=== PATIENT | female | born 1955 | race Caucasian/White ===

== ENCOUNTER 2025-03-26 16:41 | Inpatient (IN) | payer MEDICARE, BC ==
[~2025-03-26] VITALS: Ht 172.7 cm; Wt 112.0 kg
--- NOTE | 2025-03-26 17:05 | ELECTROCARDIOGRAPH REPORT ---
[facility] Test Date: 2025-03-26 Test Time: 17:03:07 Pat Name: HANDY MILLS Department: [facility] Patient ID: [facility]-[id number] Room: [place] [id number] Gender: F Appliance Sales Associate: : 1955 Requested By: FARIDEH RUDD Order Number: [id number] Reading MD: Dr. Osei Vo Measurements Intervals [place] Rate: 73 P: 54 DC: 150 QRS: 54 QRSD: 90 T: 45 QT: 379 QTc: 418 Interpretive Statements Sinus rhythm Electronically Signed On 03-27-2025 21:13:[address] Osei Vo Please click the below link to view image of tracing.
--- NOTE | 2025-03-26 17:24 | RADIOLOGY REPORT ---
CHEST RADIOGRAPH INDICATION: CP TECHNIQUE: Single frontal view of the chest was obtained COMPARISON: None FINDINGS: Lines and Tubes: None Lungs: No focal consolidation. Pleura: No effusion. No pneumothorax. Cardiomediastinal contours: Unremarkable Bones: No acute osseous abnormality. IMPRESSION: No acute cardiopulmonary disease.
[2025-03-26 17:42] LABS: MEAN PLATELET VOLUME 7.0 FL (7.4-10.4); RED CELL DISTRIBUTION WIDTH 14.5 % (11.5-14.5)
[2025-03-26 18:01] LABS: CREATININE 0.79 MG/DL (0.40-0.90); PRO BRAIN NATRIURETIC PEPTIDE 112 PG/ML (0-125); TOTAL CARBON DIOXIDE 30.1 MMOL/L (24-32); eCRCL 66 ML/MIN; eGFR 72 ML/MIN
--- NOTE | 2025-03-26 18:29 | Physician Documentation ---
History of Present Illness ~ Chief Complaint: Chest Pain Stated Complaint: MUTIPLE ISSUES Time Seen by MD: 18:16 OK to notify your PCP?: Yes Source: patient Mode of Arrival: POV, Ambulatory Exam Limitations: no limitations HPI 69 year old female patient with history of endometrial cancer presents to the ED with complaints of dizziness/lightheadedness/tightness in chest onset today. She is dealing with pain that radiates down bilateral shoulders. She feels generally unsteady. Symptoms started around noon today. She had a stress test about a year and a half ago for pre-surgical clearance which was unremarkable. Patient denies any other associated symptoms. Patient denies any other alleviat ing or exacerbating factors at this time. Medication Reconciliation Allergies: Coded Allergies: No Known Allergies (Unverified , 03/26/25) Miscellaneous Medications Home Med List (No Home Medications), (Reported) Past Medical History Other Past Medical History: Endometrial cancer Past Surgical History: noncontributory Smoking Status: Never smoker Drug Use: marijuana Lives In: Home Review of Systems All Other Systems at this time: Reviewed and Negative ROS As stated above in the HPI, otherwise all systems are reviewed and negative. Physical Exam Vital Signs: RN Vital Signs have been reviewed: Yes, Temperature: 98.3, Source: Oral, Heart Rate: 65, Respiratory Rate: 16, BP: 139/78, Pulse Oximetry: 98, Weight: 112.300 Oxygen Flow Rate: 0 Pulse Oximetry Reflects: adequate oxygenation Physical Exam General: Patient is awake, alert, oriented x4 in no acute distress and well appearing.~ Head: Normocephalic and atraumatic. Eyes: Conjunctival normal. EOMI. PERRL. ENT: Mucous membranes moist. Neck: Supple, trachea is midline. Chest: Clear to auscultation bilaterally without rales, rhonchi, or wheezes. There is no accessory muscle use or retractions. Cardiac: RRR without murmurs, gallops, or rubs. Abd: Soft, nondistended, nontender, with normoactive bowel sounds. No guarding, rebound, or rigidity. Extremities: Normal strength. Normal range of motion. No deformities or edema. Back: No midline spinal or CVA tenderness. Skin: Warm and dry with no significant rash appreciated. Neuro: Cranial nerves II-XII grossly intact. No focal neuro deficits. Patient ambulating without difficulty. Progress Progress Note 1900: Paging hospitalist. 1920: Resident hospitalist agrees to evaluate patient for admission. Results/Orders Results/Orders Orders - ZAKI REILLY MD Page Hospitalist (03/26/25 19:01) Fill Out Med Reconciliation (03/26/25 19:01) Completed Orders - ZAKI REILLY MD D-Dimer (03/26/25 18:41) Pt Inr (03/26/25 17:06) PTT (03/26/25 17:06) Vital Signs 03/26/25 03/26/25 03/26/25 03/26/25 16:50 17:38 17:59 18:38 Temp 97.5 98.3 Pulse 83 65 64 Resp 16 14 16 16 B/P (MAP) 152/81 139/78 (98) 129/73 (91) Pulse Ox 97 98 96 O2 Flow Rate 0 0 03/26/25 19:20 Pulse 62 Resp 15 B/P (MAP) 155/75 (101) Pulse Ox 100 O2 Flow Rate 0 Laboratory Tests Test 03/26/25 17:06 03/26/25 19:18 White Blood Count 3.9 L Red Blood Count 4.59 Hemoglobin 13.7 Hematocrit 41.6 Mean Corpuscular Volume 90.5 Mean Corpuscular Hemoglobin 29.7 Mean Corpuscular Hemoglobin Concent 32.9 L Red Cell Distribution Width 14.5 Platelet Count 170 Mean Platelet Volume 7.0 L Neutrophils (%) (Auto) 59.5 Lymphocytes (%) (Auto) 24.7 Monocytes (%) (Auto) 11.8 Eosinophils (%) (Auto) 3.2 Basophils (%) (Auto) 0.8 Neutrophils # (Auto) 2.3 Lymphocytes # (Auto) 1.0 L Monocytes # (Auto) 0.5 Eosinophils # (Auto) 0.1 Basophils # (Auto) 0.0 CBC Comment Prothrombin Time 9.9 INR International Normalized Ratio 1.0 Activated Partial Thromboplast Time 28 D-Dimer 0.60 H D-Dimer Comment Coagulation Comments Sodium Level 142 Potassium Level 4.0 Chloride Level 106 Carbon Dioxide Level 30.1 Anion Gap 6 L Blood Urea Nitrogen 22 H Creatinine 0.79 Estimated GFR/1.73 m2 72 BUN/Creatinine Ratio 27.8 H Glucose Level 107 H Calcium Level 9.1 Magnesium Level 2.0 Troponin I High Sensitivity 5 7 Pro-B-Type Natriuretic Peptide 112 Albumin 3.5 Triglycerides Level 125 Cholesterol Level 224 H LDL Cholesterol 122 H HDL Cholesterol 63 H Cholesterol/HDL Ratio 3.6 Thyroid Stimulating Hormone (TSH) 1.42 Chemistry Comments Troponin I High Sens Percent Delta 40 Troponin I Hi Sens Absolute Change 2 EKG/XRAY/CT/US/VASC/MRI EKG : Intepreting Monitor?: No Additional Comment EKG interpreted by myself: 1703: Normal sinus rhythm rate of 73, normal axis, no ST changes. Chest X-Ray : Interpreted By: radiologist Views: 1 VIEW Additional Comments CHEST RADIOGRAPH INDICATION: CP TECHNIQUE: Single frontal view of the chest was obtained COMPARISON: None FINDINGS: Lines and Tubes: None Lungs: No focal consolidation. Pleura: No effusion. No pneumothorax. Cardiomediastinal contours: Unremarkable Bones: No acute osseous abnormality. IMPRESSION: No acute cardiopulmonary disease. Electronically Signed by:LADAN CAMACHO DO Date & Time: 03/26/25 172 Dictated by: LADAN CAMACHO DO Dictation date and time: 03/26/25 1710 Primary Care Provider: NO PRIMARY CARE PROVIDER cc: FARIDEH RUDD MD ~ Medical Decision Making Additional information obtaine: N/A Findings Patient presents to the emergency room with chest pain that has per HPI. Differentials include but are not limited to ACS, pulmonary embolism, p neumothorax, pneumonia, viral syndrome therefore emergent labs and imaging indicated. Age adjusted D-dimer reassuring. Troponin reassuring. The patient does have elevated heart score we will admit for further investigation. Heart Score: 4 Differential Dx:Considerations: Include: angina, aortic dissection, chest wall pain, cholelithiasis, CHF, costochondritis, esophageal reflux/spasm, gastritis, herpes zoster, myocardial infarction, pericarditis, pleuritis, pancreatitis, pneumonia, pneumothorax, pulmonary embolus, other Departure Time of Disposition: 19:00 Impression: Primary Impression: Chest pain Qualified Codes: R07.9 - Chest pain, unspecified Condition: Fair Referrals: NO PRIMARY CARE PROVIDER (PCP) Signature Scribe Signature: Scribed for Zaki Reilly MD by Rajeev Avila . 03/26/25 19:01 Attestation: The note accurately reflects work and decisions made by me.Zaki Reilly MD 03/27/25 02:21 ZAKI REILLY MD Mar 26, 2025 18:29 RAJEEV MARIE Mar 26, 2025 18:52
[2025-03-26] MEDS ORDERED: mag hydrox/Alum hydrox/simeth 30ml oral suspension PO PRN (19:35)
[2025-03-26] MEDS ORDERED: magnesium sulf-water 4G/100mL 100 ML IV PRN (19:35)
[2025-03-26] MEDS ORDERED: ondansetron/PF 4mg/2ml inj IV PRN (19:35)
[2025-03-26] MEDS ORDERED: potassium Cl 40MEQ/1/2NS 520ml 520 ML IV PRN (19:35)
[2025-03-26] MEDS ORDERED: magnesium hydroxide 30ml (MOM) UD suspension PO PRN (19:35)
[2025-03-26] MEDS ORDERED: magnesium Cl slow-release 64mg tablet PO PRN (19:35)
[2025-03-26] MEDS ORDERED: potassium Cl 20 mEq SR tablet PO PRN ×2 (19:35)
[2025-03-26] MEDS ORDERED: magnesium sulf-water 2g/50mL 50 ML IV PRN (19:35)
[2025-03-26] MEDS: K and/or MAG REPLACEMENT MC SCH (20:00)
[2025-03-26] MEDS: docusate sod 100mg capsule PO SCH (20:00)
[2025-03-26 20:13] LABS: APTT 28 SECONDS (22-32); INR 1.0 INR
[2025-03-26 21:07] LABS: CHOL/HDL RATIO 3.6 (0.00-4.99); LDL CHOLESTEROL 122 MG/DL (50-100)
--- NOTE | 2025-03-26 21:18 | HISTORY AND PHYSICAL-Residence ---
History & Physical Providers to CC Resident Creating Document: ADRIAN MCFARLANE, RES ~ History of Present Illness Reason for Admit\Complaint: Chest Pain, orthostatic hypotension History of Present Illness 69-year-old female with no significant past medical history presented to the Emergency Department with dull chest tightness that began three days ago. The pain is constant, rated 2/10 in intensity, occurs at rest, and has no identifiable aggravating or relieving factors. It radiates to the neck and is associated with palpitations, nausea, vomiting, very mild shortness of breath, bilateral shoulder pain, and upper extremity muscle discomfort. She denies any similar episodes in the past and has no history of hypertension, myocardial infarction, or hyperlipidemia. The patient follows with Dr. Sanchez as an outpatient for surgical clearance. Additionally, she reports episodes of vertigo and lightheadedness when standing suddenly from a sitting position and notes a recent decrease in speech intensity. She denies focal neurological deficits, blurry vision, facial droop, loss of balance, or ataxia. Allergies: Coded Allergies: No Known Allergies (Unverified , 03/26/25) Past Medical History Past Medical History Arthritis Endometrial cancer Migraine Past Surgical History Surgical History Comment Bilateral hip surgery Gastric sleeve -2017 Endometrial cancer underwent robotic hysterectomy in 2023 and had last dose of chemotherapy and radiotherapy in December 2023 Past Social History Social History Comment PCP-[facility] Oncology-[facility] follows every 3 months [place]- Patient lives in home alone Patient drinks alcohol occasionally and smokes occasionally She smokes cigarettes and marijuana occasionally Able to ambulate without any assistance Drug Use: Marijuana Lives In: Home ROS All Other Systems: Reviewed and Negative ROS Review of system is negative except that mentioned in HPI Exam Vitals: Vital Signs Date Time Temp Pulse Resp B/P (MAP) Pulse Ox O2 Delivery O2 Flow Rate FiO2 03/26/25 20:16 67 15 133/82 (99) 96 0 03/26/25 17:38 98.3 General: Obese body habitus, Awake , alert, and oriented x4 HEENT: Atraumatic, normocephalic, EOMI, anicteric sclera ; pink conjunctiva, mild dry oral mucosa Neck: Trachea midline. Supple, full range of motion, no JVD Cardiac: Regular rhythm, regular rate with no murmurs all over the precordium. Respiratory: Equal breath sounds bilaterally, no tachypnea, no wheezing ,rub or rales, Chest wall is symmetric and without deformity. Gastrointestinal: Abdomen symmetric, non-distended, soft, non-tender, normal bowel sounds x4 quadrant, normoactive, no hepatosplenomegaly Neurological: Mental status exam: alert and consciousness, orientation, memory, speech - Cranial nerve test: Cranial nerves 2-12 intact - Motor system: Normal Nutrition, normal tone, Power 5/5, no involuntary movements - Sensory system: Intact - Reflex testing: Biceps, triceps and knee reflexes 2+ - Cerebellar: Normal Skin: Warm and dry Extremities : Mild less than +1 edema seen in bilateral lower extremity, peripheral pulses felt, No deformities Psychiatric:Appropriate mood and affect Diagnostic Data Last Recorded Lab Results: 03/27/25 0606 03/27/25 0646 Diagnostic Data: Laboratory Tests Test 03/26/25 17:06 Prothrombin Time 9.9 SECONDS (9.0-12.0) INR International Normalized Ratio 1.0 INR Activated Partial Thromboplast Time 28 SECONDS (22-32) D-Dimer 0.60 MG/L FEU (0-0.50) H D-Dimer Comment Coagulation Comments Advance Care Planning Advanced Care plannin - 30 Minutes Additional Plan 69 years old female with no significant past medical history is currently evaluated for chest pain Chest pain-ACS can not rule out Heart score-4 Wells Score-0 and Age Adjusted D-dimer is Normal as 68 years old can have Normal D-dimer upto 0.70 Patient presented with central chest pain which is 2/10 intensity radiating to the neck Troponin-negative, EKG-normal sinus rhythm, pro BNP normal Chest x-ray-rules out cardiopulmonary abnormality LDL-122 Started atorvastatin 40 mg, aspirin 81 mg, metoprolol 12.5 mg p.o., sublingual nitroglycerin p.r.n., TSH, U tox Patient will be monitored in telemetry, Follow up with Echo Patient will be NPO from midnight and Lexiscan tomorrow- Orthostatic hypotension Likley due to dehydration Patient mentioned she feels dizzy when stands up suddenly from sitting position Ordered orthostatic vitals, Started IV NS 75 cc per Hr - we will reaccess the volume status in 6 hrs Vertigo Central vs peripheral Patient mentioned having the sensation of room spinning whenever she stands up, per patient she has decreased in intensity of speech but for me it looks normal hence central causes can not be ruled out Follow up with CT head without contrast Chronic muscle and joint pain Pain control with morphine Obesity Patient has BMI of 37.6 and she underwent gastric sleeve surgery the past Follow up with PCP and recommended exercise and heart healthy diet Follow up with lipid panel Advance care: I spent a total of 16 minutes reviewing various resuscitative measures/ACP with patient. The patient decided to be full code Code Status: Full DVT prophylaxis: Heparin subQ Analgesia/Sedation: Morphine Line/tube: Peripheral Nutrition: Heart healthy and NPO from midnight PT: Order Prognosis: Guarded Disposition: Patient will be monitored in PCU with telemetry, NPO from midnight and Lexiscan in a.m. Adrian Mcfarlane PGY1-Internal Medicine Resident Addendum I personally reviewed the chart, labs and imaging and reviewed the patient with the team. I agree with the assessment and plan as documented by the resident. Patient was seen through remote audio-visual assessment through HIPAA compliance setup. Date of Service: Mar 26, 2025 Billing Provider: MICKEY MCELROY MD, SATISH, RES Mar 26, 2025 21:18 MICKEY MCELROY MD Mar 27, 2025 16:15
[2025-03-26] MEDS ORDERED: aminophylline 250mg/10ml inj. IV PRN (21:20)
[2025-03-26] MEDS ORDERED: metoprolol tartrate 1mg/ml inj IV PRN (21:20)
[2025-03-26] MEDS: metoprolol succinate 25mg (24-HOUR) SR. Tablet PO SCH (22:00)
[2025-03-26] MEDS: pantoprazole 40mg Tablet.DR PO ONE (22:01)
[2025-03-26] MEDS ORDERED: NO HOME MEDS (22:38)
--- NOTE | 2025-03-26 22:44 | RADIOLOGY REPORT ---
EXAM: CT CT HEAD INDICATION: Vertigo with speech problem suspecting central cause TECHNIQUE: CT of the head without intravenous contrast. Radiation Dose Information: CT Dose: CTDI volume is 60.20 mGy. Dose-length product is 1165.3 mGy*cm The dose indicators for CT are the volume Computed Tomography (CT) Dose Index (CTDIvol) and the Dose Length Product (DLP), and are measured in units of mGy and mGy-cm, respectively. These indicators are not patient dose, but values generated from the CT scanner acquisition factors. The report includes radiation exposure data for exposures received during this examination. COMPARISON: None FINDINGS: Motion artifact degrades fine detail. No acute territorial infarct, intracranial hemorrhage, or mass effect. There are global involutional changes with compensatory prominence of the ventricles and sulci. Patchy periventricular and subcortical white matter hypoattenuation is nonspecific but may be related to small vessel ischemic disease. The orbits are normal. The paranasal sinuses and mastoid air cells are clear. The osseous structures are unremarkable. IMPRESSION: 1. No acute territorial infarct, intracranial hemorrhage, or mass effect. 2. Age-related involutional changes. Chronic microvascular changes. 3. If clinical symptoms persist, MRI may be beneficial in further evaluation.
[2025-03-26 22:57] VITALS: BP 140/63; PULSE 72; RESP 19; TEMP 97.6; O2SAT 95
[2025-03-26] MEDS: normal saline 1000ml 1,000 ML IV SCH (23:26)
[2025-03-27] VITALS (17 sets, daily range): BP systolic 106–144; BP diastolic 45–76; PULSE 55–89; RESP 12–19; TEMP 97–98; O2SAT 91–98
[2025-03-27 06:30] LABS: LEUKOCYTE ESTERASE ,URINE SMALL (Neg); NITRITES, URINE NEGATIVE (Neg); OCCULT BLOOD,URINE TRACE-INTACT (Neg)
[2025-03-27 06:33] LABS: URINE AMPHETAMINE SCREEN NEGATIVE (Neg); URINE BARBITUATE SCREEN NEGATIVE (Neg); URINE BENZODIAZEPINES SCREEN NEGATIVE (Neg); URINE CANNABINOID SCREEN NEGATIVE (Neg); URINE COCAINE SCREEN NEGATIVE (Neg); URINE METHADONE SCREEN NEGATIVE (Neg); URINE OPIATE SCREEN NEGATIVE (Neg); URINE PHENCYCLIDINE SCREEN NEGATIVE (Neg)
[2025-03-27 06:42] LABS: UA COLLECTION TYPE NON-SPECIFIED
[2025-03-27 06:44] LABS: MUCUS STRANDS NONE SEEN /LPF (Neg); SQUAMOUS EPITHELIAL CELL,UR MODERATE /LPF (FEW); WBC CLUMPS,URINE FEW /HPF (NEGATIVE)
[2025-03-27 07:05] LABS: MEAN PLATELET VOLUME 6.9 FL (7.4-10.4); RED CELL DISTRIBUTION WIDTH 13.9 % (11.5-14.5)
[2025-03-27 07:30] LABS: CREATININE 0.67 MG/DL (0.40-0.90); TOTAL CARBON DIOXIDE 27.8 MMOL/L (24-32); eCRCL 78 ML/MIN; eGFR 87 ML/MIN
[2025-03-27] MEDS: heparin, porcine 5000 units/ml vial SQ SCH (07:46)
[2025-03-27 08:27] LABS: EOSINOPHILS % (MANUAL) 8.0 % (0-6); LYMPHOCYTES % (MANUAL) 25.0 % (21-51); MONOCYTES % (MANUAL) 17.0 % (2-12); NEUTROPHILS % (MANUAL) 50.0 % (42-75); PLATELET ESTIMATE NORMAL
[2025-03-27] MEDS: CefTRIAXone/D5W-Rocephin 1gm 50 ML IV ONE (09:37)
[2025-03-27] MEDS: PERFLUTREN PROTEIN-A MICROSPHR (Optison) 0.22 MG/ML 3ML VIAL IV ONE (10:00)
[2025-03-27] MEDS: regadenoson 0.4mg/5ml syringe IV PRN (10:30)
--- NOTE | 2025-03-27 11:55 | RADIOLOGY REPORT ---
PROCEDURE: PA NM ARTURO SCAN Exam Date: 03/27/2025 10:03 AM Reason for study/Clinical History: angina Comparison Study: None Myocardial Perfusion Study with SPECT TECHNIQUE: The patient received an intravenous injection of 8.8 mCi of technetium-99m sestamibi while at rest. After a short delay, SPECT tomographic images of the heart were obtained. The patient then went to the stress lab where they received an intravenous Lexiscan utilizing standard protocol. 35.3 mCi of technetium-99m sestabmibi was injected intravenously immediately after the start of the infusion. Gated SPECT tomographic images of the heart were acquired and processed. FINDINGS: Rotating planar images show no significant attenuation artifact. The left ventricular size is within normal limits. Stress tomographic images demonstrate normal perfusion. Resting tomographic images demonstrate a similar pattern. Gated portion of the study shows normal wall motion and myocardial thickening. The left ventricular ejection fraction is 60%. (normal greater than 50%) IMPRESSION: Normal left ventricular size, wall motion, and function, without evidence of infarction or of myocardium at ischemic risk.The left ventricular ejection fraction is 60%.
--- NOTE | 2025-03-27 13:16 | CARDIOLOGY REPORT ---
APPROVED REPORT EXAM: Comprehensive 2D, Doppler, and color-flow Echocardiogram. Patient Location: 3025B Blood Pressure: 126/76 mmHg Heart Rate: 65 bpm Rhythm: NSR Indications CAD Drafter Castings is BV. Laura MD No previous echo 2D Dimensions LA Diam 4.1 cm IVSd 1.0 (0.7-1.1cm) LVDd 4.5 cm PWd 1.0 (0.7-1.1cm) IVSs 1.5 (0.8-1.2cm) LVDs 3.2 (2.5-4.0cm) Aortic Root(2D) 3.1 cm PWs 1.5 (0.8-1.2cm) LVOT Diameter 2.00 (1.8-2.4cm) LVEF(%) 54.3 (>50%) Ao Asc Diam. 3.61 cm IVC 14.71 mm FS (%) 28.0 % SV 50.3 ml CO 3.3 L/min M-Mode Dimensions MV EPSS 0.5 (<0.5cm) Aortic Valve AoV Peak Kelechi. 138.4 cm/s AoV VTI 33.2 cm AO Peak GR. 7.7 mmHg AO Mean GR. 4 mmHg LVOT VTI 22.45 cm LVOT Peak Kelechi. 89.8 cm/s SIRI(VTI)/BSA 2.12 cm2/m2 SIRI (VTI) 2.12 cm2 AV DI 0.68 % Mitral Valve MV E Velocity 65.8 cm/s MV Peak Gr. 2 mmHg MV DECEL TIME 248 ms MV A Velocity 95.9 cm/s MV PHT 64 ms E/A Ratio 0.7 MVA (PHT) 3.44 cm2 MV VMax 76.1 cm/s TDI Medial E' P. V 12.36 cm/s E/Medial E' 5.3 Tricuspid Valve TR P. Velocity 256 cm/s RAP ESTIMATE 10 mmHg TR Peak Gr. 26 mmHg RVSP 36 mmHg Pulmonary Vein S1 Velocity 50.4 cm/s D2 Velocity 30.1 cm/s PVa Velocity 27.0 cm/s PVa Duration 96 msec LEFT VENTRICLE Normal LV size and wall thickness. Overall systolic function is normal. Overall LVEF is 55%. RIGHT VENTRICLE RV appears mildly dilated with normal contractility. RVSP is estimated at 36 mmHG. ATRIA Left atrium is mildly dilated. Small left to right patent foramen ovale noted by spectral and color flow Doppler. AORTIC VALVE Trileaflet AV appears sclerotic without stenosis. Trace insufficiency by color and spectral flow Doppler. MITRAL VALVE Mild MV annular calcification without stenosis. Trace regurgitation by color and spectral flow Doppler. TRICUSPID VALVE TV appears structurally normal with trace regurgitation by color and spectral flow Doppler. PULMONIC VALVE Normal PV without stenosis, physiologic insufficiency by color and spectral flow Doppler. GREAT VESSELS The aortic root is normal in size. The ascending aorta is measured at 3.6 cm. The IVC is normal in size and collapses >50% with inspiration. PERICARDIUM There is no pericardial effusion. Other Information Study Quality: Adequate Conclusion Overall LVEF is 55%. Normal LV size and wall thickness. Overall systolic function is normal. RV appears mildly dilated with normal contractility. RVSP is estimated at 36 mmHG. Small left to right patent foramen ovale noted by spectral and color flow Doppler. Trileaflet AV appears sclerotic without stenosis. Trace insufficiency by color and spectral flow Doppler. Mild MV annular calcification without stenosis. Trace regurgitation by color and spectral flow Doppler. TV appears structurally normal with trace regurgitation by color and spectral flow Doppler. There is no pericardial effusion.
--- NOTE | 2025-03-27 18:52 | PROGRESS NOTE ---
Daily Progress Note Providers to CC ~ Antibiotic Timeout Antibiotic Ordered?: No Subjective The patient continues to experience chest pressure however serial troponins were negative in his Lexiscan stress test was unremarkable- the patient is states that she has dizziness which is different than her prior vertigo episodes head CT scan was unremarkable as well as echocardiogram I have ordered a CTA of the head and neck as well as waiting for physical therapy evaluation Objective Vital Signs Date Time Temp Pulse Resp B/P (MAP) Pulse Ox O2 Delivery O2 Flow Rate FiO2 03/27/25 15:00 97.0 58 18 106/45 (65) 98 Room Air 03/26/25 20:16 0 Result Diagram: 03/27/25 0606 03/27/25 0646 Gen. No acute distress alert and oriented 4, obese Lungs clear to ascultation bilaterally, no wheezes rales or rhonchi appreciated Heart normal sinus rhythm no murmurs rubs or clicks noted Abdomen soft nontender bowel sounds are normoactive Lower extremities no clubbing cyanosis, nor edema appreciated bilaterally Coagulation Studies Laboratory Tests Test 03/26/25 17:06 Prothrombin Time 9.9 SECONDS (9.0-12.0) INR International Normalized Ratio 1.0 INR Activated Partial Thromboplast Time 28 SECONDS (22-32) D-Dimer 0.60 MG/L FEU (0-0.50) H D-Dimer Comment Coagulation Comments Problem\Assessment\Plan # Chest pain- acute coronary syndrome/NSTEMI evaluated for and ruled out Lexiscan stress test was negative for ischemia or reversible ischemia Serial troponins are negative # dizziness when standing # episode different than prior vertigo episodes Head CT scan was negative for CVA CTA is ordered of the head and neck Orthostatic vital signs were negative for orthostatic hypotension # obesity Weight loss is strongly advised by admitting doctor # DVT prophylaxis SQ heparin Disposition: Awaiting physical therapy evaluation Date of Service: Mar 27, 2025 Billing Provider: ERIK NUÑEZ DO Common Visit Codes: 03185-[id number] INP/OBS CARE(HIGH) ERIK NUÑEZ DO Mar 27, 2025 18:52
--- NOTE | 2025-03-27 22:49 | RADIOLOGY REPORT ---
INDICATION: Significant dizziness COMPARISON: CT CT HEAD on DOS: 03/26/25 TECHNIQUE: CTA imaging of the head and neck was performed following the uneventful administration of intravenous contrast. Sagittal and coronal reformatted images were obtained from the source data. All CT scans at this medical facility are performed using dose modulation techniques as appropriate to a performed exam including the following: Automated exposure control was utilized; adjustment of the MA and/or KV according to patient size; and use of iterative reconstruction technique. 3D MIP post-processing of the source data set was performed and reviewed by the radiologist. Radiation Dose Information: CT Dose: CTDI volume is 15.3 mGy. Dose-length product is 641.3 mGy*cm FINDINGS: Evaluation is degraded by streak artifact. The caliber and course of the distal internal carotid arteries is unremarkable. No evidence of high-grade stenosis or occlusion of the proximal branch vessels of the [place]. origin of the right posterior cerebral artery. The basilar artery is patent. The intracranial segments of the bilateral vertebral arteries are unremarkable in caliber. No evidence of large aneurysm or arteriovenous malformation. The visualized thoracic aortic arch and proximal great vessels are unremarkable. The left common, internal and external carotid arteries are within normal limits. The right common, internal and external carotid arteries are within normal limits. The cervical segments of the right and left vertebral arteries are within normal limits. The left vertebral artery is dominant. The right vertebral artery is diminutive. The limited visualized lung apices are clear. The surrounding soft tissues and osseous structures are otherwise unremarkable. A IMPRESSION: 1. No large vessel occlusion. No evidence of hemodynamically significant cervical stenosis or dissection.
[2025-03-28 02:00] VITALS: BP 106/55; PULSE 70; RESP 15; TEMP 97.5; O2SAT 96
[2025-03-28 05:05] LABS: MEAN PLATELET VOLUME 7.1 FL (7.4-10.4); RED CELL DISTRIBUTION WIDTH 14.3 % (11.5-14.5)
[2025-03-28 05:21] LABS: CREATININE 0.73 MG/DL (0.40-0.90); TOTAL CARBON DIOXIDE 29.5 MMOL/L (24-32); eCRCL 71 ML/MIN; eGFR 79 ML/MIN
[2025-03-28 06:00] VITALS: BP 120/57; PULSE 60; RESP 15; TEMP 97.5; O2SAT 95
[2025-03-28 08:00] VITALS: RESP 15; O2SAT 95
[2025-03-28] MEDS: CefTRIAXone/D5W-Rocephin 1gm 50 ML IV SCH (08:01)
[2025-03-28] MEDS ORDERED: CEFD300C3 PO (11:36)
[2025-03-28] MEDS ORDERED: SACC250C PO (11:36)
--- NOTE | 2025-03-28 19:29 | DISCHARGE SUMMARY ---
Discharge Summary Providers to CC ~ Discharge Summary Admission Diagnosis: UNSTABLE ANGINA Hospital Course DATE OF ADMISSION: 03/26/2025 DATE OF DISCHARGE: 03/28/2025 Discharge Diagnosis\\Comment: Chest pain-acute coronary syndrome/NSTEMI was evaluated for an ruled out Dizziness with standing possible vertigo variant- CVA is ruled out Obesity UTI Operations\\Procedures: None Consultants: None Complications: None Condition on DC: Stable New Medications: Cefdinir* (Cefdinir*) 300 Mg Capsule 1 CAP PO Q12H, #10 CAP Saccharomyces Boulardii (Florastor) 250 Mg Capsule 1 CAP PO Q12H for loose stool for 10 Days, #20 CAP 0 Refills Discontinued Medications: Home Med List (No Home Medications) Each Discharge Summary: The patient is admitted by resident physician ADRIAN Allen , under the supervision of MICKEY Calix MD with the following HPI:"69-year-old female with no significant past medical history presented to the Emergency Department with dull chest tightness that began three days ago. The pain is constant, rated 2/10 in intensity, occurs at rest, and has no identifiable aggravating or relieving factors. It radiates to the neck and is associated with palpitations, nausea, vomiting, very mild shortness of breath, bilateral shoulder pain, and upper extremity muscle discomfort. She denies any similar episodes in the past and has no history of hypertension, myocardial infarction, or hyperlipidemia. The patient follows with Dr. Sanchez as an outpatient for surgical clearance. Additionally, she reports episodes of vertigo and lightheadedness when standing suddenly from a sitting position and notes a recent decrease in speech intensity. She denies focal neurological deficits, blurry vision, facial droop, loss of balance, or ataxia." The patient is serial troponins were negative and Lexiscan stress test was negative for ischemia or reversible ischemia echocardiogram demonstrated an LVEF of 55% that has a mild elevation RVSP of 36 mm Hg- the patient did have a small [id number] patent foramen ovale for which I called the patient and informed her of this finding The patient has a CTA of the head which was was negative for any large vessel occlusion the patient is orthostatic vital signs were negative The patient did have a UTI/cystitis- her urinalysis showed small leuk esterase however there was 50-100 white blood cells and some white blood cell clumps th ere was moderate squamous epithelial cells and few bacteria urine culture was negative however did discharge the patient with a five day course of cefdinir due to the white blood cell clumps and Florastor probiotic. Gen. No acute distress alert and oriented 4 Lungs clear to ascultation bilaterally, no wheezes rales or rhonchi appreciated Heart normal sinus rhythm no murmurs rubs or clicks noted Abdomen soft nontender bowel sounds are normoactive Lower extremities no clubbing cyanosis, nor edema appreciated bilaterally The patient felt ready to be discharged and was medically cleared to be discharged on 03/28/2025 The patient was seen and evaluated on day of discharge. 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 Sanchez at her yearly office visit *Problems/Diagnosis: (1) Chest pain Status: Acute Total Time Spent on D/C: > 30 Minutes Date of Service: Mar 28, 2025 Billing Provider: ERIK NUÑEZ DO Common Visit Codes: 99524-NYY/OBS DISCH DAY >30min Problem Qualifiers (1) Chest pain: Qualified Codes: R07.9 - Chest pain, unspecified ERIK NUÑEZ DO Mar 28, 2025 19:29
== END 2025-03-28 12:53 | disposition home or self-care (01) | DRG 206 ==
LOC: ER 16:42 → ED HOLD 19:39 → EDBEDREQ 22:13 → PCU 3S 22:57
PROVIDERS: ADMIT Internal Medicine Sleep Medicine; ATTEND Family Medicine
PROC: 4A02XM4 Measurement of Cardiac Total Activity, External Approach (ICD-10-PCS; principal; 2025-03-27)
PROC: 3E033HZ Introduction of Radioactive Substance into Peripheral Vein, Percutaneous Approach (ICD-10-PCS; 2025-03-27)
PROC: B3251ZZ Computerized Tomography (CT Scan) of Bilateral Common Carotid Arteries using Low Osmolar Contrast (ICD-10-PCS; 2025-03-27)
PROC: B32G1ZZ Computerized Tomography (CT Scan) of Bilateral Vertebral Arteries using Low Osmolar Contrast (ICD-10-PCS; 2025-03-27)
PROC: B32R1ZZ Computerized Tomography (CT Scan) of Intracranial Arteries using Low Osmolar Contrast (ICD-10-PCS; 2025-03-27)
PROC: B3281ZZ Computerized Tomography (CT Scan) of Bilateral Internal Carotid Arteries using Low Osmolar Contrast (ICD-10-PCS; 2025-03-27)
DX: M94.0 Chondrocostal junction syndrome [Tietze] (principal); N30.91 Cystitis, unspecified with hematuria; E66.9 Obesity, unspecified; Q21.12 Patent foramen ovale; R07.89 Other chest pain; E86.0 Dehydration; I95.1 Orthostatic hypotension; G43.909 Migraine, unspecified, not intractable, without status migrainosus; F17.210 Nicotine dependence, cigarettes, uncomplicated; G89.29 Other chronic pain; M25.511 Pain in right shoulder; M25.512 Pain in left shoulder; Z85.42 Personal history of malignant neoplasm of other parts of uterus; Z90.49 Acquired absence of other specified parts of digestive tract; Z68.37 Body mass index [BMI] 37.0-37.9, adult
CPT/HCPCS: 36415; 70450; 70496; 70498; 71045; 78452; 80048; 80053; 80061; 80305; 81001; 83735; 83880; 84443; 84484; 85007; 85025; 85379; 85610; 85730; 87081; 87088; 93005; 93017; 93306; 96360; 97116; 97161; 97530; 99285; A9500; G0378; J0696; J1644; J2785; J7030; Q9967